=== PATIENT | female | born 1935 | race Caucasian/White ===

== ENCOUNTER 2016-02-11 14:30 | Outpatient (RCR) | payer OTHER | END 2016-03-08 | disposition home or self-care (01) | LOC: PTY 14:30 | DX: M51.36 Other intervertebral disc degeneration, lumbar region (principal); M50.30 Other cervical disc degeneration, unspecified cervical region | CPT/HCPCS: 97110; G0283 ==

== ENCOUNTER 2016-03-07 14:15 | Outpatient (RCR) | payer OTHER | END 2016-03-08 | disposition home or self-care (01) | LOC: PTY 14:15 | DX: M54.5 Low back pain (principal); R41.3 Other amnesia; R26.9 Unspecified abnormalities of gait and mobility; M19.049 Primary osteoarthritis, unspecified hand; M81.0 Age-related osteoporosis without current pathological fracture ==

== ENCOUNTER 2016-03-10 10:18 | Outpatient (RCR) | payer OTHER | END 2016-04-05 | disposition home or self-care (01) | LOC: PTY 10:18 | DX: M19.90 Unspecified osteoarthritis, unspecified site (principal); M51.36 Other intervertebral disc degeneration, lumbar region; M50.30 Other cervical disc degeneration, unspecified cervical region | CPT/HCPCS: 97110; G0283 ==

== ENCOUNTER 2016-04-18 10:10 | Outpatient (RCR) | payer OTHER | END 2016-05-06 | disposition home or self-care (01) | LOC: PTY 10:10 | DX: M19.90 Unspecified osteoarthritis, unspecified site (principal); M51.36 Other intervertebral disc degeneration, lumbar region; M50.30 Other cervical disc degeneration, unspecified cervical region | CPT/HCPCS: 97110; G0283 ==

== ENCOUNTER 2016-05-11 10:55 | Outpatient (RCR) | payer OTHER | END 2016-06-05 | disposition home or self-care (01) | LOC: PTY 10:55 | DX: M51.36 Other intervertebral disc degeneration, lumbar region (principal); M50.30 Other cervical disc degeneration, unspecified cervical region | CPT/HCPCS: 97110; G0283 ==

== ENCOUNTER 2016-12-01 09:50 | Outpatient (RCR) | payer OTHER | END 2016-12-06 | disposition home or self-care (01) | LOC: PTY 09:50 | DX: M54.40 Lumbago with sciatica, unspecified side (principal) | CPT/HCPCS: 97110; 97161; G0283 ==

== ENCOUNTER 2017-06-13 12:00 | Outpatient (RCR) | payer OTHER | END 2017-07-06 | disposition home or self-care (01) | LOC: PTY 12:00 | DX: R26.89 Other abnormalities of gait and mobility (principal); M41.9 Scoliosis, unspecified ==

== ENCOUNTER 2017-07-13 13:38 | Outpatient (RCR) | payer OTHER | END 2017-08-05 | disposition home or self-care (01) | LOC: PTY 13:38 | DX: R26.89 Other abnormalities of gait and mobility (principal); M41.9 Scoliosis, unspecified ==

== ENCOUNTER 2017-08-08 13:00 | Outpatient (RCR) | payer OTHER | END 2017-09-05 | disposition home or self-care (01) | LOC: PTY 13:00 | DX: R26.89 Other abnormalities of gait and mobility (principal); M41.9 Scoliosis, unspecified ==

== ENCOUNTER 2017-09-07 13:00 | Outpatient (RCR) | payer OTHER | END 2017-10-06 | disposition home or self-care (01) | LOC: PTY 13:00 | DX: R26.89 Other abnormalities of gait and mobility (principal); M41.9 Scoliosis, unspecified ==